=== PATIENT | male | born 1990 | race African-American/Black ===

== ENCOUNTER 2024-11-05 23:17 | Emergency (ER) | payer MEDICAID, SELFPAY ==
[2024-11-05 23:21] VITALS: BP 108/64; PULSE 78; RESP 18; TEMP 36.2; O2SAT 92
--- NOTE | 2024-11-05 23:41 | W.ED.GENAD ---
Discharge Plan Discharge Details Chief Complaint: PsychEval Clinical Impression: Auditory hallucination, History of command hallucinations, Homeless ED Provider: Joe Rivers Home Meds and New Rx's Prescriptions: No Action Unable to Obtain HPI General Date/Time Provider Initiated Documentation: 11/05/24 23:20. HPI Narrative: This is a 34-year-old -[place] male with a past medical history of what sounds to be schizophrenia, diabetes type 2, who presents today via [facility] for evaluation. Patient states that he is currently homeless, he was trespassing in places after being released from half-way. He describes that he has been hearing voices that have been telling him to do things like chop my feet off or other parts of my body. He denies any command hallucinations to hurt others. He denies any visual hallucinations at this time. He denies any homicidal ideations. He states he does not necessarily want to kill himself or end his life. He states that he does use crack cocaine and he most recently used within the last 48 hours. He denies any alcohol use. No other complaints at this time. He does not have any significant records for the [facility] [employer] access portal. Related Data Home Medications ?Medication ?Instructions ?Recorded ?Confirmed Unknown [Unable to Obtain] 11/05/24 11/05/24 Allergies Allergy/AdvReac Type Severity Reaction Status Date / Time No Known Allergies Allergy Unverified 11/05/24 23:37 General Stated Complaint: PsychEval KATHLEEN: 2 Exam Narrative Exam Narrative: 1.Const: Well-nourished, Well-developed, appearing stated age 2.Eyes: PERRL, no conjunctival injection, and symmetrical lids. 3.ENT: Atraumatic external nose and ears. Moist MM. Neck: Symmetric, trachea midline, No thyromegaly. 4.CVS: +S1/S2, Peripheral pulses 2+ and equal in all extremities. Brisk capillary refill in all extremities. 5.RESP: Unlabored respiratory effort. Clear to auscultation bilaterally. No wheezes rales or rhonchi 6.GI: Soft, Nontender/Nondistended, No hepatosplenomegaly. No guarding or rebound. 7.MSK: Normocephalic/Atraumatic, Extremities w/o deformity or ttp No cyanosis or clubbing, Normal movement of all extremities 8.Skin: Warm, Dry. No rashes or lesions. 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 Sensation grossly intact, no focal neurologic deficits. 10.Psych: (AAO) x3. Appropriate mood and affect Course Vital Signs Vital signs: Vital Signs Temperature 36.2 C L 11/05/24 23:21 Pulse 78 11/05/24 23:21 Respiratory Rate 18 11/05/24 23:21 Blood Pressure 108/64 11/05/24 23:21 Pulse Oximetry 92 11/05/24 23:21 Temperature 36.2 C L 11/05/24 23:21 Temperature Source Temporal Artery Scan 11/05/24 23:21 Pulse 78 11/05/24 23:21 Respiratory Rate 18 11/05/24 23:21 Blood Pressure 108/64 11/05/24 23:21 Blood Pressure Position Sitting 11/05/24 23:21 Pulse Oximetry 92 11/05/24 23:21 Oxygen Delivery Method Room Air 11/05/24 23:21 Oxygen Flow Rate 0 11/05/24 23:21 Medical Decision Making This is a 34-year-old -Dutch male with a past medical history of what sounds to be schizophrenia, diabetes type 2, who presents today via [facility] for evaluation. Patient states that he is currently homeless, he was trespassing in places after being released from half-way. He describes that he has been hearing voices that have been telling him to do things like chop my feet off or other parts of my body. He denies any command hallucinations to hurt others. He denies any visual hallucinations at this time. He denies any homicidal ideations. He states he does not necessarily want to kill himself or end his life. He states that he does use crack cocaine and he most recently used within the last 48 hours. He denies any alcohol use. No other complaints at this time. He does not have any significant records for the [facility] [employer] access portal. Exam demonstrates well-appearing male, no acute distress. He does have concerning command hallucinations, and this certainly does pose a risk to himself. He is here voluntarily and is seeking help. We will give Zyprexa to aid in his current auditory hallucinations state. We will contact mental health, we will medically screen, monitor closely and reassess. 1:57 AM Patient has been medically cleared. He remained stable. Mental health is seen and assessed him, they recommend reassessment in the morning. Patient remains agreeable and voluntary. Patient will be transition to zone B. Quality:SDOH Health Related Social Needs: Health related social needs inadequate housing (Z59.1), housing instability, housed, with risk of homelessness (Z59.811), food insecurity (Z59.41) PFSH All Active Problems (Updated 11/06/24 @ 01:58 by Joe Rivers DO) Homeless (Acute) History of command hallucinations (Acute) Auditory hallucination (Acute) Social History Smoking/Tobacco Use Status: Current every day Smoking risk assessment performed?: Yes Alcohol Intake: current Drug use: Daily Details: Pt not willing to answer specifics about drug use, but endorses use Housing: homeless Do you feel safe at home: No Do you feel safe in your relationship?: No
[2024-11-05] MEDS: OLANZapine 10 MG TAB 20 MG PO (23:43)
[2024-11-05 23:56] LABS: *AMPHETAMINES SCREEN URINE Negative (Negative); *BARBITURATES SCREEN URINE Negative (Negative); *BENZODIAZEPINES SCREEN URINE Negative (Negative); Cannabinoids THC Positive (Negative); Cocaine Screen,Urine Positive (Negative); METHADONE URINE SCREEN Negative (Negative); OPIATES URINE SCREEN Negative (Negative)
[2024-11-05 23:58] LABS: Tricyclic Antidepressants Negative (Negative)
[2024-11-06 00:26] LABS: Abs Immature Grans 0.04 10^3/uL (0.0-0.06); Absolute Basophil Count 0.03 10^3/uL (0.0-0.2); Absolute Eosinophil Count 0.01 10^3/uL (0.0-0.7); Absolute Lymphocyte Count 2.79 10^3/uL (1.2-3.4); Absolute Monocyte Count 0.61 10^3/uL (0.1-0.8); Absolute Neutrophil Count 6.73 10^3/uL (1.2-6.7); Basophils % 0.3 %; Eosinophils % 0.1 %; HCT 36.8 % (40.0-50.0); HGB 11.6 g/dL (13.5-17.5); Immature Grans % 0.4 %; Lymphocytes % 27.3 %; MCH 25.6 pg (27.0-33.0); MCHC 31.5 % (32.0-36.0); MCV 81 fL (80-95); MPV 9.9 fL (8.0-11.0); Neutrophils % 65.9 %; Platelet Count 340 10^3/uL (130-400); RBC 4.54 10^6/uL (4.36-5.78); RDW 16.4 % (11.8-14.1); RDW-SD 46.5 fL; WBC 10.21 10^3/uL (4.4-10.8)
[2024-11-06 00:46] LABS: Salicylate 2.9 mg/dL (<2.8)
[2024-11-06 00:47] LABS: Acetaminophen < 2 ug/mL (10-30)
[2024-11-06 00:49] LABS: ALT 24 U/L (16-63); AST 32 U/L (15-37); Alkaline Phosphatase 102 U/L (46-116); Anion Gap 10.2 mmol/L (3-11); BUN 16 mg/dL (7-18); Bilirubin, Total 0.82 mg/dL (0.2-1.0); CO2 27.8 mmol/L (21.0-32.0); CREATININE 1.3 mg/dL (0.70-1.30); Calcium 9.5 mg/dL (8.5-10.1); Chloride 105 mmol/L (98-107); Estimated GFR 74.85 (mL/min/1.73m2); Glucose 91 mg/dL (74-106); Potassium 3.7 mmol/L (3.5-5.1); Sodium 143 mmol/L (136-145); TSH (W/Ref FT4) 2.35 uIU/mL (0.36-3.74); Total Protein 9.1 g/dL (6.4-8.2)
[2024-11-06 01:04] LABS: ETHANOL BLOOD < 3.0 mg/dL (<10)
[2024-11-06 08:34] VITALS: BP 98/56; PULSE 68; RESP 18; TEMP 36.7; O2SAT 97
--- NOTE | 2024-11-06 14:54 | ED.PROG_ITS ---
Date of service: 11/06/24 Time of Service: 14:55 Medical Decision Making Care was signed out by Dr. Rivers please see his documentation regarding prior ED course. Patient was reevaluated by [facility] crisis screener. Patient deemed not at risk of harming himself. A safety plan was established. Patient does need assistance with housing and other social determinants of health. [facility] crisis screener working with care management to provide as many resources as possible here today. Disposition decision was made weighing the risks and benefits of hospitalization versus outpatient treatment, the risk for further decompensation, and the patient's wishes. The patient was stable and requested discharge. Prior to discharge, my usual and customary return precautions were reviewed with the patient - this included follow-up instructions and reason to return to the emergency department if condition worsens, does not improve as expected, or other new concerns arise. Quality:SDOH Health Related Social Needs: Health related social needs inadequate housing (Z59.1) , housing instability, housed, with risk of homelessness (Z59.811), food insecurity (Z59.41) Discharge Plan Disposition Patient Disposition: Home Condition: Stable Discharge Details Clinical Impression: Auditory hallucination, History of command hallucinations, Homeless, Cocaine abuse Primary Care Provider: None,None ED Provider: Jonathan Zepeda [place] Meds and New Rx's Prescriptions: No Action metformin 500 mg tablet 500 mg PO BID pantoprazole 40 mg tablet,delayed release (DR/EC) 40 mg PO DAILY trazodone 50 mg tablet 25 mg PO DAILY fluoxetine 10 mg capsule 10 mg PO DAILY fluoxetine 40 mg capsule 40 mg PO DAILY olanzapine 5 mg tablet 5 mg PO DAILY olanzapine 15 mg tablet 15 mg PO DAILY trazodone 100 mg tablet 100 mg PO DAILY Discharge Instructions Instructions: Cocaine use disorder Additional Instructions: Please follow-up with a primary care physician. Adhere to safety plan established with [facility] crisis screener. Return to the ER immediately for any worsening or new concerning symptoms. [facility] [[facility] Discharge Data Discharge Date/Time-TO BE ENTERED AT DEPARTURE: 11/06/24 15:55
--- NOTE | 2024-11-06 15:44 | PDOC.CMPRO ---
Date of service: 11/06/24 Time of Service: 15:44 Care Management Progress Note Progress Note Text Progress Note Text: CM met with [facility] regarding Liyah's plan of care. Per [facility], he does not meet criteria for inpatient psychiatric admission, and together they will create a safety plan, and he will return to the community. CM contact the learning coach, who met with Liyah and provided support. [facility] met with Liyah at length, and supported him with making a phone call to [facility], and unfortunately, he did not meet criteria for emergency housing/residential. Per report, there is no availability at the [facility] at this time. CM sent a referral to [facility] to help assist with insurance (if he plans to remain in [place]), housing, food support, and other community resources that may be available to him. He does not have a phone or an address currently, which will be a barrier to him obtaining services. His RN walked him over to [facility] after discharge, for him to receive walk in support. Social Determinants of Health Screening Will the Patient Participate in the Screening?: Declined to provide
--- NOTE | 2024-11-06 17:21 | PDOC.MHCN ---
Date of service: 11/06/24 Time of Service: 17:04 Mental Health Emergency Note Release [facility] release signed:: Yes Reason for Visit Liyah is presenting to the ED for inpatient treatment after being seen for a mobile crisis encounter at [facility]. In the last 2 weeks has the pt presented for ES prior to today?: Yes, presented at [facility] ED Client Information Client is: New Well Housed: No,status: Homeless Stable housing Non Suicidal Self Injury Current: No History: No Safety Risk/Harm to Self or Others Current Ideation to Harm Self or Others: Yes to self. (Client is reporting he wants to end his life, but has not disclosed a plan or intent) Intent: no, has no intent. Plan: no.does not have a plan. History of suicide attempt: yes,history of suicide attempt reported. Details of previous suicide attempt: Client has previously tried to overdose in attempt to end his life Risk: Does risk to harm exist?: No Risk: N/A Duty to warn indicated: No Asssessment/Mental Status Appearance: Unremarkable Attitude: Cooperative and Passive Behavior: Gait disturbances Speech: Normal Affect: Cogruent with mood Mood: Stressed and Irritable Thought process: Goal directed Hallucinations: No evidence Delusions: No evidence Attention: Unremarkable Perception: Not impaired Orientation: Fully orientated Memory: Intact Insight: Fair Judgement: Fair Neurovegetative Symptoms Sleep: No change Appetitie: No change Interests: No change Energy: No change Libido: Not applicable Substance Use: Do you use nicotine?: No Have you used substances in the last 7 days?: yes, Client reports history of crack and cocaine use, client did not disclose last use or frequency of use. Additional Issues: Assaultive/Threatening Behavior: No Medical Concerns: No Client engaged in active self harm w/weapon: No Threatening to run away: No Child reported abuse/neglect: No Voluntarily presenting for services: Yes Domestic violence is a concern: No Extreme Psychosis or extreme behavior is present: No Impression Liyah presents to this job specification writer sitting in a room with Rand[facility] staff at [facility] who is completing insurance paperwork with him. Liyah is in street clothes and sits across the table. This job specification writer reminded Liyah she was the clinician who he spoke to on the phone on 11/05, Liyah did not acknowledge this encounter and when this clinician asks how we can help and what is going on Liyah states, Im gonna kill myself Liyah reports he has no home and no hope and that earlier he lied to [facility] so he could leave the ED on a safety plan. Liyah could not disclose why he lied or what his intentions where and appeared frustrated this job specification writer was questioning him in regards to this. Shanon reports he doesn't know, yet how he would end his life but he knows he would. Liyah reports a previous attempt of trying to overdose but a friend stopped him. Liyah also reports previous times of endorsing SI. Liyah denies HI at this time but would not disclose history of HI or violence to this job specification writer. Liyah confirmed he was incarcerated for 2 years in [place], [place] but did not disclose why. Liyah is originally from [place] and when asked [place] he reported it is a long story and he does not want to answer any more questions. When this job specification writer reminded Liyah we are trying to help he was willing to engage again. Liyah reports he wants to seek inpatient treatment for his mental health, Liyah and this job specification writer discussed that means staying in the ED until a bed at inpatient becomes available and he reports he is wiling to do so now. Liyah makes minimal eye contact with this job specification writer, is brief in response, and shows gist disturbance. Liyah could benefit from short term inpatient treatment. Plan/Disposition Recommended Disposition: Hospitalization (Referrals will be sent on 11/06 for Liyah) facilities contacted. Plan: Liyah will go to the ED at [facility] to seek voluntary inpatient treatment and will remain there until treatment can be found. Person reported agreement to plan: Yes Reports/communication Outcome discussed with: ED/Personnel
[2024-11-07 11:23] LABS: Hepatitis A Antibody IgM Negative (Negative); Hepatitis B Core Antibody Negative (Negative); Hepatitis B surface Ag Negative (Negative); Hepatitis C Ab w Rflx HCV PCR Reactive (Negative)
[2024-11-08 11:59] LABS: HCV RNA Qualitative Undetected (Undetected)
== END 2024-11-06 15:55 | disposition home or self-care (01) ==
PROVIDERS: Student in an Organized Health Care Education/Training Program; Emergency Provider Student in an Organized Health Care Education/Training Program
DX: R44.0 Auditory hallucinations (principal); Z59.00 Homelessness unspecified; F14.90 Cocaine use, unspecified, uncomplicated; Z59.811 Housing instability, housed, with risk of homelessness; Z59.41 Food insecurity
CPT/HCPCS: 00123; 36415; 80053; 80307; 86704; 86709; 86803; 87340; 87522; 99283; 80320; 80329; 84443; 85025; 99284

== ENCOUNTER 2024-11-06 17:09 | Emergency (ER) | payer MEDICAID, SELFPAY ==
[2024-11-06 17:28] VITALS: BP 111/72; PULSE 76; RESP 16; TEMP 36.8; O2SAT 96
--- NOTE | 2024-11-06 17:53 | W.ED.GENAD ---
Discharge Plan Discharge Details Chief Complaint: PsychEval Clinical Impression: Depression with suicidal ideation, Homeless, Cocaine abuse Primary Care Provider: None,None ED Provider: Bronwyn Alberts Home Meds and New Rx's Prescriptions: No Action No Known Home Meds HPI General Mode of arrival: ambulatory. Date/Time Provider Initiated Documentation: 11/06/24 17:12. Limitations to Documentation: no limitations. Information obtained by: patient and old records reviewed. HPI Narrative: HPI: This is a 34-year-old male patient with a past medical history significant for cocaine use, history of hallucinations, and homelessness who is presenting for evaluation of suicidal ideation. Of note, the patient was discharged from this facility approximately 1 hour ago, mom states that when he left in the setting of COVID exposure and inability to be placed in a senior care he began to feel worthless and helpless and felt suicidal. No specific plan or intent, states that he did not do anything to harm himself this evening. He reports that he has not used cocaine since yesterday, did not use prior to returning to care. States that he has otherwise been without change in his health. Exam: Gen: Awake and alert, in no apparent distress HEENT: Non-icteric sclera Neck: Supple Lungs: No apparent respiratory distress, normal respiratory effort. CV: Appears well perfused, strong distal pulses Abdomen: Non-distended MSK: Moves 4 extremities without apparent limitation in ROM Skin: Visualized skin without rashes, cyanosis. Neuro: Normal Gait, no obvious focal deficits or facial asymmetry. Speaks in full, clear sentences. Psych: Endorsing suicidal ideation MDM: This is a 34-year-old male patient presenting for evaluation of suicidal ideation. Differential includes but is not limited to primary psychiatric disturbance, certainly considered intoxication and withdrawal syndrome. The patient is tolerating p.o., has not had any recent illnesses, injuries, and meets [facility] medical criteria for medical clearance without advanced imaging or laboratory studies. We will reach out to [facility] for the patient to be reevaluated. I did provide the patient with a nicotine patch given his history of tobacco use ED Course: I signed out care of this patient to the oncoming team prior to final disposition. I was awaiting an EKG chest evaluation, patient remains voluntary, I anticipate that he will be able to be safety plan, as senior care is a leading component of his suicidality. He remained hemodynamically appropriate, comfortable, and cooperative. Bronwyn Alberts MD Related Data Home Medications ?Medication ?Instructions ?Recorded ?Confirmed Unknown [No Known Home Meds] 11/06/24 11/06/24 Allergies Allergy/AdvReac Type Severity Reaction Status Date / Time No Known Allergies Allergy Unverified 11/05/24 23:37 General KATHLEEN: 2 Medical Decision Making Quality:SDOH Health Related Social Needs: Health related social needs inadequate housing (Z59.1), housing instability, housed, with risk of homelessness (Z59.811), food insecurity (Z59.41) PFSH All Active Problems (Updated 11/06/24 @ 22:23 by Bronwyn Alberts MD) Depression with suicidal ideation (Acute) Cocaine abuse (Acute) Homeless (Acute) History of command hallucinations (Acute) Auditory hallucination (Acute) Social History Smoking/Tobacco Use Status: Current every day Smoking risk assessment performed?: Yes Alcohol Intake: current Drug use: Daily Details: Pt not willing to answer specifics about drug use, but endorses use Housing: homeless Do you feel safe at home: No Do you feel safe in your relationship?: No
[2024-11-06] MEDS: Nicotine 14 MG/24 HR PATCH TD (18:05)
--- NOTE | 2024-11-06 18:51 | W.PC.ACHO1 ---
Registration Status: Primary Language: Preferred Language: ED Information & Data Chief Complaint PsychEval 11/06/24 17:59 Chief Complaint PsychEval 11/06/24 17:28 Triage Note Discharged earlier today 11/06/24 17:28 with a safety plan. Returned to the hospital, endorsing auditory and visual hallucinations of unclear nature. Also endorses SI. Most Recent Vital Signs Temperature 36.8 C 11/06/24 17:28 Temperature Source Tympanic 11/06/24 17:28 Pulse 76 11/06/24 17:28 Respiratory Rate 16 11/06/24 17:28 Blood Pressure 111/72 11/06/24 17:28 Blood Pressure Position Sitting 11/06/24 17:28 Pulse Oximetry 96 11/06/24 17:28 Oxygen Delivery Method Room Air 11/06/24 17:28 Oxygen Flow Rate 0 11/06/24 17:28 Allergies No Known Allergies Allergy (Unverified 11/05/24 23:37) Active Medications Generic Name Dose Route Start Last Admin Trade Name Freq PRN Reason Stop Dose Admin Nicotine 14 mg 11/07/24 08:30 11/06/24 18:05 Nicotine 14 Mg/24 Hr Patch TD 14 mg DAILY KRISTEN Administration Intake and Output - 24 Hour Total 11/06/24 17:09 thru 11/06/24 17:28 Weight 102.058 kg Falls Risk Assessment History of Falls No History 11/06/24 18:03 Contributing Factors No Factors 11/06/24 18:03 Ambulatory Aids Independent 11/06/24 18:03 Tubes/Lines None 11/06/24 18:03 Gait Evaluation No gait disturbance 11/06/24 18:03 Cognition No cognitive impairment 11/06/24 18:03 Fall Total Score 0 11/06/24 18:03 Level of Risk Standard/Low Risk 11/06/24 18:03 v v v v v v v v v Sending and/or Receiving Nurses: Please use comment section below to note any information pertinent to the patient hand-off not included above. Information / Comments: Report received from: Jean Dao RN
--- NOTE | 2024-11-07 01:41 | ED.PROG_ITS ---
Date of service: 11/07/24 Time of Service: 01:41 Medical Decision Making Patient stable throughout the night, no interventions needed. Pending reassessment by mental health advocates in the morning. Quality:SDOH Health Related Social Needs: Health related social needs inadequate housing (Z59.1) , housing instability, housed, with risk of homelessness (Z59.811), food insecurity (Z59.41) Discharge Plan Discharge Details Chief Complaint: PsychEval Clinical Impression: Depression with suicidal ideation, Homeless, Cocaine abuse Primary Care Provider: None,None ED Provider: Joe Rivers Home Meds and New Rx's Prescriptions: No Action No Known Home Meds
--- NOTE | 2024-11-07 14:45 | ED.PROG_ITS ---
Date of service: 11/07/24 Time of Service: 07:00 Medical Decision Making Quality:SDOH Health Related Social Needs: Health related social needs inadequate housing (Z59.1) , housing instability, housed, with risk of homelessness (Z59.811), food insecurity (Z59.41) Discharge Plan Discharge Details Chief Complaint: PsychEval Clinical Impression: Depression with suicidal ideation, Homeless, Cocaine abuse Primary Care Provider: None,None ED Provider: Myron Vincent Home Meds and New Rx's Prescriptions: No Action No Known Home Meds
--- NOTE | 2024-11-07 16:27 | ED.PROG_ITS ---
Date of service: 11/07/24 Time of Service: 16:31 Medical Decision Making Care assumed from off going provider. Patient is a 34-year-old gentleman with suicidal ideation currently pending voluntary inpatient psychiatric placement. Quality:[facility] Health Related Social Needs: Health related social needs inadequate housing (Z59.1) , housing instability, housed, with risk of homelessness (Z59.811), food insecurity (Z59.41) Discharge Plan Discharge Details Chief Complaint: PsychEval Clinical Impression: Depression with suicidal ideation, Homeless, Cocaine abuse Primary Care Provider: None,None ED Provider: Haylie Armijo Home Meds and New Rx's Prescriptions: No Action No Known Home Meds
--- NOTE | 2024-11-07 19:20 | PDOC.CMSAFE ---
Date of service: 11/07/24 Time of Service: 19:20 Care Management Safety Plan Status Status: Voluntary Reason for Wait Reason for Wait: Inpatient Admission Safety Plan Safety Plan: VOLUNTARY FOR INPATIENT PSYCHIATRIC STABILIZATION.? Patient is appropriate in all interactions since arriving at [facility]; Pt has demonstrated appropriate coping and communication skills, has articulated his needs and concerns and is fully engaged during staff interaction Safety plan has been established with patient and care team to adhere to patient goals, identify restrictions based on behavioral status, address nutrition, and determine allowed personal belongings, tools for hygiene and personal care. Determine level of activity including ambulation, level of supervision, visitors, and determine privileges based on behaviors and level of engagement by pt. SAFETY PLAN: 1. Will remain on suicide precautions, in paper clothes 2. Will remain in room under direct supervision of one-on-one staff at all times provided by [employer]; SHREE, FLOOR LAYER TILE glass ribbon machine operator assistant. 3. May have paper cups, plates, finger foods as well as a cardboard spoon with which to eat meals. 4. Follow [facility] Management of the Admitted Behavioral Health Patient policy. 5. Comfort bath system, shower permitted with escort at RN discretion. 6. Personal belongings-soft items permitted at RN discretion. 7. Visitors- supportive guests, at RN discretion. 8. Activities: soft cart items, and netflix/hoda tablet approved per RN discretion. 9.? Bathroom privileges without limitations on med/surge. 10. Phone: limited to cordless phone at RN discretion. Due to VOLUNTARY status, if patient wishes to leave [facility], staff will contact [facility] Crisis Screener ([phone]) and the Access Clerk assigned, as soon as possible.
[2024-11-08] MEDS: Nicotine 14 MG/24 HR PATCH TD (10:04)
--- NOTE | 2024-11-08 11:51 | PDOC.MHPN2 ---
Date of service: 11/07/24 Time of Service: 10:20 Mental Health Emergency Note Release [facility] release signed:: Yes Reason for Visit The client presented to this clinican with a flat affect. The client appeared fatigued to this clinician. The client did not sit up and would close his eyes during the reassessment. The client did not lift his head off of the pillow. The client was cooperative in working with this clinician. This poem writer is importing note for ES clinician Per Tanner In the last 2 weeks has the pt presented for ES prior to today?: Yes, presented at [facility] ED Client Information Client is: Adult Outpatient Impression The client engaged with clinician on reassessment. The client states having visual and auditory hallucinations. The client reported SI with a plan but did not share the plan. The client denies HI. The client appeared fatigued and did notice his head up off his pillow. Plan/Disposition Recommended Disposition: Hospitalization facilities contacted. Plan: The client will remain at [facility] ED pending placement in an inpatient facility. Person reported agreement to plan: Yes Reports/communication Outcome discussed with: ED/Personnel (Verbal report given to zone b nurse Pena and ED provider)
--- NOTE | 2024-11-08 15:07 | PDOC.MHPN2 ---
Date of service: 11/08/24 Time of Service: 15:10 Mental Health Emergency Note Release [facility] release signed:: Yes Reason for Visit The client is not known to [facility] prior to the the crisis assessment done November 05. The client's chief complaint was visual and auditory hallucinations along with suicidal ideation. The client reports having been released from the [facility] usp for two years. This assessment is completed face to face at bedside. In the last 2 weeks has the pt presented for ES prior to today?: Yes, presented at [facility] ED Impression The client is a 34-year-old, , single male who is unhoused and was released from usp in [facility] about two weeks ago where he served a sentence of two years. He presents lying in bed with his head covered and his lunch tray on his desk. He only wakes when this clinician gently shook his leg. He does not sit up but does answer questions. He is soft spoken and has some delayed responses to questions. He did not endorse any visual or auditory hallucinations. It appeared there may be some sort of cognitive delay. The client has a blank stare during the assessment and a flat affect with the occassinal limited smile. Although it was reported he did take a shower he still has a strong body odor however, it cannot be confirmed if this is him of maybe his linen. He reported he was at [facility] for SI which he has struggled with for the last few days. He reported that he became hopeless a few days ago which was the orientation & mobility specialist for him. He reported having no natural supports in this area as he is from [facility]. He would like to go back to [place] as his 10-year-old daughter lives there with her grandmother. The client denied any current plans but does have a history of plans to overdose. HE is currently prescribed Trazadone, and Clonidine for reported diagnosis of anxiety and depression. He reported his prescriber is WILSON however, this is not verified with [facility] tracker and therefore this clinician wonders if he was previously on these meds instead of currently due to how recently he was discharged from care home. He did report that these meds worked for him when he was taking them. He is denying any HI. He reported he is sleeping and eating okay. Plan/Disposition Recommended Disposition: Crisis bed, (Declined due to hx of cocaine use and being discharged from care home. ) No and Hospitalization facilities contacted. Plan: Due to being declined from the [facility] Bed inpatient treatment will be continued. He will remain at [facility] pending acceptance to a hospital level of care and assessed daily. Person reported agreement to plan: Yes Facilities contacted if Applicable [facility] Not accepted, No bed available [facility] Not accepted, Other (CLOSED) [facility] Not accepted, Other (Left a voicemail.), [facility] Not accepted, Acuity Reports/communication Outcome discussed with: ED/Personnel
--- NOTE | 2024-11-08 15:41 | ED.PROG_ITS ---
Date of service: 11/08/24 Time of Service: 07:00 Medical Decision Making Patient was suicidal and homicidal ideation who was signed out to me he was evaluated by crisis workers who feel that he might be able to discharge with safe plan but they are to come back to reevaluate him Medical Records Medical records reviewed: Yes I reviewed the patient's medical records. Lab Data Lab results reviewed: Yes I reviewed the patient's lab results. Quality:SDOH Health Related Social Needs: Health related social needs inadequate housing (Z59.1) , housing instability, housed, with risk of homelessness (Z59.811), food insecurity (Z59.41) Exam Narrative Exam Narrative: Unchanged from previous provider Discharge Plan Discharge Details Chief Complaint: PsychEval Clinical Impression: Depression with suicidal ideation, Homeless, Cocaine abuse Primary Care Provider: None,None ED Provider: Myron Vincent Home Meds and New Rx's Prescriptions: No Action No Known Home Meds
--- NOTE | 2024-11-08 16:59 | CMSP_ITS ---
Date of service: 11/08/24 Time of Service: 16:59 Care Management Safety Plan Status Status: Voluntary Reason for Wait Reason for Wait: Inpatient Admission Safety Plan Safety Plan: VOLUNTARY FOR INPATIENT PSYCHIATRIC STABILIZATION.? Patient is appropriate in all interactions since arriving at [facility]; Pt has demonstrated appropriate coping and communication skills, has articulated his needs and concerns and is fully engaged during staff interaction Safety plan has been established with patient and care team to adhere to patient goals, identify restrictions based on behavioral status, address nutrition, and determine allowed personal belongings, tools for hygiene and personal care. Determine level of activity including ambulation, level of supervision, visit ors, and determine privileges based on behaviors and level of engagement by pt. SAFETY PLAN: 1. Will remain on suicide precautions, in paper clothes 2. Will remain in room under direct supervision of one-on-one staff at all times provided by [employer]; SHREE, INFRASTRUCTURE PROJECT MANAGER computer support specialist. 3. May have paper cups, plates, finger foods as well as a cardboard spoon with which to eat meals. 4. Follow [facility] Management of the Admitted Behavioral Health Patient policy. 5. Comfort bath system, shower permitted with escort at RN discretion. 6. Personal belongings-soft items permitted at RN discretion. 7. Visitors- supportive guests, at RN discretion. 8. Activities: soft cart items, and netflix/hoda tablet approved per RN discretion. 9.? Bathroom privileges without limitations on med/surge. 10. Phone: limited to cordless phone at RN discretion. Due to VOLUNTARY status, if patient wishes to leave [facility], staff will contact [facility] Crisis Screener ([phone]) and the Floor Space Allocator assigned, as soon as po ssible.
--- NOTE | 2024-11-08 16:59 | PDOC.CMPRO ---
Date of service: 11/08/24 Time of Service: 16:59 Care Management Progress Note Progress Note Text Progress Note Text: CM met with staff regarding Liyah's plan of care. Per RN, he has been appropriate in interactions, and appears to be opening up more to staff as he feels more comfortable. He expressed a wish to return to [place] after treatment to be closer to his 10 year old daughter. [facility] reported they are considering him for admission at the care bed, but he was declined due to concerns for acuity; he may be appropriate for a step down to the care bed, if needed. Liyah is voluntary, seeking inpatient psychiatric treatment. Referrals were sent; [facility] declined, [facility] is currently full, and [facility] is reviewing. Safety plan in place. CM will continue to follow. Social Determinants of Health Screening Will the Patient Participate in the Screening?: Declined to provide
--- NOTE | 2024-11-08 17:18 | ED.PROG_ITS ---
Date of service: 11/08/24 Time of Service: 17:00 Medical Decision Making In brief, this is a 34-year-old male patient boarding in our emergency department for suicidal ideations and command hallucinations. Prior to my taking over care he was medically cleared, states that his hallucinations have been improving. I did provide him with an order for as needed Zyprexa to be used as needed for if his hallucinations or any agitation occur. He is awaiting placement and was signed out to the oncoming provider prior to final disposition. He did not require any interventions for sedation or restraint and remained calm, cooperative, and comfortable throughout my care. Bronwyn Alberts MD Medical Records Medical records reviewed: Yes I reviewed the patient's medical records. Lab Data Lab results reviewed: Yes I reviewed the patient's lab results. Quality:SDOH Health Related Social Needs: Health related social needs inadequate housing (Z59.1) , housing instability, housed, with risk of homelessness (Z59.811), food insecurity (Z59.41) Discharge Plan Discharge Details Chief Complaint: PsychEval Clinical Impression: Depression with suicidal ideation, Homeless, Cocaine abuse Primary Care Provider: None,None ED Provider: Bronwyn Alberts Home Meds and New Rx's Prescriptions: No Action No Known Home Meds
--- NOTE | 2024-11-09 07:22 | ED.PROG_ITS ---
Date of service: 11/09/24 Time of Service: 07:22 Medical Decision Making Patient seeking voluntary placement. Hallucinations and also thoughts of self- harm. No reported issues on prior shift and no new acute complaints. Will continue to monitor until safe disposition found Quality:SDOH Health Related Social Needs: Health related social needs inadequate housing (Z59.1) , housing instability, housed, with risk of homelessness (Z59.811), food insecurity (Z59.41) Discharge Plan Discharge Details Chief Complaint: PsychEval Clinical Impression: Depression with suicidal ideation, Homeless, Cocaine abuse Primary Care Provider: None,None ED Provider: Jean Gutierres Home Meds and New Rx's Prescriptions: No Action No Known Home Meds
--- NOTE | 2024-11-09 09:10 | PDOC.CMSAFE ---
Date of service: 11/09/24 Time of Service: 09:10 Care Management Safety Plan Status Status: Voluntary Reason for Wait Reason for Wait: Inpatient Admission and Other ([facility] care bed) Safety Plan Safety Plan: VOLUNTARY FOR INPATIENT PSYCHIATRIC STABILIZATION.? Patient is appropriate in all interactions since arriving at [facility]; Pt has demonstrated appropriate coping and communication skills, has articulated his needs and concerns and is fully engaged during staff interaction Safety plan has been established with patient and care team to adhere to patient goals, identify restrictions based on behavioral status, address nutrition, and determine allowed personal belongings, tools for hygiene and personal care. Determine level of activity including ambulation, level of supervision, visitors, and determine privileges based on behaviors and level of engagement by pt. SAFETY PLAN: 1. Will remain on suicide precautions, in paper clothes 2. Will remain in room under direct supervision of one-on-one staff at all times provided by [employer]; SHREE, ZOO DIRECTOR agricultural services director. 3. May have paper cups, plates, finger foods as well as a cardboard spoon with which to eat meals. 4. Follow [facility] Management of the Admitted Behavioral Health Patient policy. 5. Comfort bath system, shower permitted with escort at RN discretion. 6. Personal belongings-soft items permitted at RN discretion. 7. Visitors- supportive guests, at RN discretion. 8. Activities: soft cart items, and netflix/hoda tablet approved per RN discretion. 9.? Bathroom privileges without limitations on med/surge. 10. Phone: limited to cordless phone at RN discretion. Due to VOLUNTARY status, if patient wishes to leave [facility], staff will contact [facility] Crisis Screener ([phone]) and the Manufacturing Business Analyst assigned, as soon as possible.
[2024-11-09] MEDS: Nicotine 14 MG/24 HR PATCH TD (09:48)
[2024-11-09 09:54] VITALS: BP 92/56; PULSE 60; TEMP 36.7; O2SAT 98
--- NOTE | 2024-11-09 12:40 | NUR.NOTE ---
Nursing Note: Contacted [facility] and received pt's MAR. Medical Reconciliation finished and physician ordered pt's daily medications. Also attempted to contact pt's booking officer, Milton Sanchez ([phone]) to determine what needs to be done to assist patient in being compliant with requirements of release from incarceration. PO unavailable. Left message with call-back number.
--- NOTE | 2024-11-09 14:55 | CMPROGNOTE_ITS ---
Date of service: 11/09/24 Time of Service: 14:56 Care Management Progress Note Progress Note Text Progress Note Text: CM met with the [facility] worker today. Maynor stated that Liyah is supposed to meet with his zoology technical officer on Monday, but that will not be happening. CM called Javad Sanchez, his VM clearly stated his name and role with corrections, and left a very generic VM that Liyah is at [facility] and will not be able to attend Monday's meeting. CM # left with Javad. [facility] Care Bed met with Liyah today, and deemed that he would do better at an inpatient setting. Referrals have already been sent. He was declined from [place]. Liyah's main goal is to get to [place], [place] so he can reconnect with his 10yo daughter. Safety Plan is in place. CM will continue to follow. Social Determinants of Health Screening Will the Patient Participate in the Screening?: Declined to provide
--- NOTE | 2024-11-09 16:13 | MHPN_ITS ---
Date of service: 11/09/24 Time of Service: 11:15 PHQ-9 Over the last 2 weeks, how often have you been bothered by any of the following problems? 1. Little interest or pleasure in doing things: several days 2. Feeling down, depressed, or hopeless: several days 3. Trouble falling or staying asleep, or sleeping too much: several days 4. Feeling tired or having little energy: several days 5. Poor appetite or overeating: nearly every day 6. Feeling bad about yourself - or that you are a failure or have let yourself and your family down: several days 7. Trouble concentrating on things, such as reading the newspaper or watching television: more than half the days 8. Moving or speaking so slowly that other people could have noticed? - Or the opposite - being so fidgety or restless that you have been moving around a lot more than usual: not at all 9. Thoughts that you would be better off or of hurting yourself in some way: several days Total score: 11 Source: Developed by Drs. Mike Ulrich, Nanci Navarrete, Jacob Don and colleagues, with an educational ab from [employer]. Suicide Severity Rate CSSRS Have you wished you were or wished you could go to sleep and not wake up?: No Have you actually had any thoughts of killing yourself?: Yes CSSRS2 Have you been thinking about how you might do this?: No Have you had these thoughts and had some intention of acting on them?: Yes Have you started to work out or worked out the details of how to kill yourself? Do you intend to carry out this plan?: No CSSRS3 Have you ever done anything, started to do anything or prepared to do anything to end your life?: Yes CSSRS4 Was this within the past three months?: No Screening Score Total Score: 4 Screening: Positive Mental Health Emergency Note Release [facility] release signed:: Yes Reason for Visit Suicidal ideation, possible cognitive delays In the last 2 weeks has the pt presented for ES prior to today?: Yes, presented at Client Information Client is: New Well Housed: No,status: Homeless Unstable housing Non Suicidal Self Injury Current: No History: No Safety Risk/Harm to Self or Others Current Ideation to Harm Self or Others: Yes to self. Intent: yes, has intent. Plan: no.does not have a plan. History of suicide attempt: No history of suicide attempt reported Risk: Does risk to harm exist?: yes. Risk: Moderate Risk Duty to warn indicated: No Asssessment/Mental Status Appearance: Other (hospital clothing) Attitude: Cooperative and Other (cogniton deficits) Behavior: Unremarkable Speech: Normal Affect: Constricted Mood: Depressed and Anxious Thought process: Poverty of content Hallucinations: No Delusions: No Attention: Poor concentration Perception: Not impaired Orientation: Fully orientated Memory: Intact Insight: Poor Judgement: Poor Neurovegetative Symptoms Sleep: Decrease Appetitie: Decrease Interests: Decrease Energy: Decrease Libido: Not applicable Substance Use: Other (no) Drug Issues: Other (has been using crack cocaine for the last 2 weeks but was incarcerated for 2 years prior) Do you use nicotine?: No Have you used substances in the last 7 days?: yes, unknown Additional Issues: Assaultive/Threatening Behavior: No Medical Concerns: No Client engaged in active self harm w/weapon: No Threatening to run away: No Child reported abuse/neglect: No Voluntarily presenting for services: Yes Domestic violence is a concern: No Extreme Psychosis or extreme behavior is present: No Impression This client has recently come off a drug bendor using crack after being in long term for the last 2 years,appears to have some cognitive deficits [facility] and given:: 988 Plan/Disposition Recommended Disposition: Hospitalization facilities contacted. Plan: Awaitng to go inpatient for mental health regularity Facilities contacted if Applicable [facility] Not accepted, No bed available [facility] Not accepted, No bed available, [facility] Not accepted, No bed available [facility] Not [facility], Other Reports/communication Outcome discussed with: ED/Personnel
--- NOTE | 2024-11-09 20:04 | W.EDPROG ---
Date of service: 11/09/24 Time of Service: 15:00 Medical Decision Making This is a 34-year-old male patient boarding in our emergency department for command hallucinations and suicidal. Prior to my taking over their care, the patient was medically cleared, and has been resting comfortably. They have met with the social studies teacher and we are awaiting final dispo. They have not required any additional medications for restraint or sedation. The patient was signed out to the oncoming provider prior to final disposition. Remained hemodynamically appropriate, calm, cooperative, and comfortable while under my care. Bronwyn Alberts MD Medical Records Medical records reviewed: Yes I reviewed the patient's medical records. Lab Data Lab results reviewed: Yes I reviewed the patient's lab results. Quality:SDOH Health Related Social Needs: Health related social needs inadequate housing (Z59.1), housing instability, housed, with risk of homelessness (Z59.811), food insecurity (Z59.41) Discharge Plan Discharge Details Chief Complaint: PsychEval Clinical Impression: Depression with suicidal ideation, Homeless, Cocaine abuse Primary Care Provider: None,None ED Provider: Bronwyn Alberts Home Meds and New Rx's Prescriptions: No Action metformin 500 mg tablet 500 mg PO BID pantoprazole 40 mg tablet,delayed release (DR/EC) 40 mg PO DAILY trazodone 50 mg tablet 25 mg PO DAILY fluoxetine 10 mg capsule 10 mg PO DAILY fluoxetine 40 mg capsule 40 mg PO DAILY olanzapine 5 mg tablet 5 mg PO DAILY olanzapine 15 mg tablet 15 mg PO DAILY trazodone 100 mg tablet 100 mg PO DAILY
[2024-11-09] MEDS: traZODone 100 MG TAB PO (20:20)
[2024-11-09] MEDS: traZODone 50 MG TAB 25 MG PO (20:20)
[2024-11-09] MEDS: metFORMIN 500 MG TAB PO (20:21)
--- NOTE | 2024-11-10 07:35 | ED.PROG_ITS ---
Date of service: 11/10/24 Time of Service: 07:35 Medical Decision Making Patient seeking voluntary placement for hallucinations and thoughts of self- harm, no reported changes on prior shift and no new acute complaints. Will continue to monitor until safe disposition found Quality:SDOH Health Related Social Needs: Health related social needs inadequate housing (Z59.1) , housing instability, housed, with risk of homelessness (Z59.811), food insecurity (Z59.41) Discharge Plan Discharge Details Chief Complaint: PsychEval Clinical Impression: Depression with suicidal ideation, Homeless, Cocaine abuse Primary Care Provider: None,None ED Provider: Jean Gutierres [facility] Meds and New Rx's Prescriptions: No Action metformin 500 mg tablet 500 mg PO BID pantoprazole 40 mg tablet,delayed release (DR/EC) 40 mg PO DAILY trazodone 50 mg tablet 25 mg PO DAILY fluoxetine 10 mg capsule 10 mg PO DAILY fluoxetine 40 mg capsule 40 mg PO DAILY olanzapine 5 mg tablet 5 mg PO DAILY olanzapine 15 mg tablet 15 mg PO DAILY trazodone 100 mg tablet 100 mg PO DAILY
[2024-11-10 08:04] VITALS: BP 100/57; PULSE 80; RESP 19; TEMP 37.4; O2SAT 98
[2024-11-10] MEDS: FLUoxetine 20 MG CAP 40 MG PO (10:25)
[2024-11-10] MEDS: Nicotine 14 MG/24 HR PATCH TD (10:25)
[2024-11-10] MEDS: metFORMIN 500 MG TAB PO ×2 (10:25→19:49)
[2024-11-10] MEDS: Pantoprazole 40 MG TABCR PO (10:26)
[2024-11-10] MEDS: OLANZapine 10 MG TAB 20 MG PO (10:26)
--- NOTE | 2024-11-10 12:05 | PDOC.CMSAFE ---
Date of service: 11/10/24 Time of Service: 12:05 Care Management Safety Plan Status Status: Voluntary Reason for Wait Reason for Wait: Inpatient Admission Safety Plan Safety Plan: VOLUNTARY FOR INPATIENT PSYCHIATRIC STABILIZATION.? Patient is appropriate in all interactions since arriving at [facility]; Pt has demonstrated appropriate coping and communication skills, has articulated his needs and concerns and is fully engaged during staff interaction Safety plan has been established with patient and care team to adhere to patient goals, identify restrictions based on behavioral status, address nutrition, and determine allowed personal belongings, tools for hygiene and personal care. Determine level of activity including ambulation, level of supervision, visitors, and determine privileges based on behaviors and level of engagement by pt. SAFETY PLAN: 1. Will remain on suicide precautions, in paper clothes 2. Will remain in room under direct supervision of one-on-one staff at all times provided by [employer]; SHREE, RUBBLE PLACER library technology instructor. 3. May have paper cups, plates, finger foods as well as a cardboard spoon with which to eat meals. 4. Follow [facility] Management of the Admitted Behavioral Health Patient policy. 5. Comfort bath system, shower permitted with escort at RN discretion. 6. Personal belongings-soft items permitted at RN discretion. 7. Visitors- supportive guests, at RN discretion. 8. Activities: soft cart items, and netflix/hoda tablet approved per RN discretion. 9.? Bathroom privileges without limitations on med/surge. 10. Phone: limited to cordless phone at RN discretion. Due to VOLUNTARY status, if patient wishes to leave [facility], staff will contact [facility] Crisis Screener ([phone]) and the Window Shade Installer assigned, as soon as possible.
--- NOTE | 2024-11-10 12:48 | PDOC.MHPN2 ---
Date of service: 11/10/24 Time of Service: 11:11 Mental Health Emergency Note Release [facility] release signed:: Yes Reason for Visit The client is not known to [facility] prior to the the crisis assessment done November 05. The client's chief complaint was visual and auditory hallucinations along with suicidal ideation. The client reports having been released from the [facility] senior living after two years. This re- assessment is completed face to face at bedside. In the last 2 weeks has the pt presented for ES prior to today?: Yes, presented at Impression The client is a 34-year-old, , single male who is unhoused and was released from senior living in [facility] less than a week ago to two weeks ago per review of chart, where he served a sentence of two years. His responses to all answers vary assessment to assessment. He presents lying in bed with his head covered and appears to be sleeping when this sba underwriter arrives in his room. He does not sit up but does answer questions. He is soft spoken and has some delayed responses to questions. He did not endorse any visual or auditory hallucinations currently, but reports to this sba underwriter that he did last week. The client reports that he was hearing voices that were telling him to hurt himself. It appeared there may be some sort of cognitive delay. The client has a blank stare during the assessment and a flat affect with the occasional limited smile. Although it was reported he did take a shower he still has a strong body odor. He reported he was at [facility] for SI which he has struggled with for the last few days, although denies current SI today. He reported that he became hopeless a few days ago which was the trigger for him. He reported having no natural supports in this area as he is from [facility] but in another assessment, he reported he was from [place]. 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 The client denied any current suicide plans but does have a history of plans to overdose. Per [facility] staff they were able to get a medication list from [facility] yesterday and ED provider started him on his previously prescribed medications for diagnosed anxiety and depression. Per this writers conversation with ED staff he took his medications this morning, however wanted to know what each medication was. This sba underwriter had conversation with the client regarding his substance abuse and he is open to [facility] coming in to talk to him. Donna is going to page [facility]. Plan/Disposition Recommended Disposition: Hospitalization (No beds available today) facilities contacted. Plan: Due to being declined from the [facility] Bed inpatient treatment will be continued. He will remain at [facility] pending acceptance to a hospital level of care and assessed daily. Reports/communication Outcome discussed with: ED/Personnel (Verbal report given to [facility] zone b )
--- NOTE | 2024-11-10 17:12 | ED.PROG_ITS ---
Date of service: 11/10/24 Time of Service: 16:00 Medical Decision Making In brief, this is a 34-year-old male patient boarding voluntarily in the emergency department awaiting placement for suicidal ideation and command hallucinations. Prior to my taking over their care, the patient was medically cleared, and has been resting comfortably. They have met with the professor of social work and we are awaiting final dispo. They have not required any additional medications for restraint or sedation. He has had minimal p.o. intake today, but denies nausea, abdominal pain, and has not required any acute interventions. The patient was signed out to the oncoming provider prior to final disposition. Remained hemodynamically appropriate, calm, cooperative, and comfortable while under my care. Bronwyn Alberts MD Medical Records Medical records reviewed: Yes I reviewed the patient's medical records. Lab Data Lab results reviewed: Yes I reviewed the patient's lab results. Quality:[facility] Health Related Social Needs: Health related social needs inadequate housing (Z59.1) , housing instability, housed, with risk of homelessness (Z59.811), food insecurity (Z59.41) Discharge Plan Discharge Details Chief Complaint: PsychEval Clinical Impression: Depression with suicidal ideation, Homeless, Cocaine abuse Primary Care Provider: None,None ED Provider: Bronwyn Alberts Home Meds and New Rx's Prescriptions: No Action metformin 500 mg tablet 500 mg PO BID pantoprazole 40 mg tablet,delayed release (DR/EC) 40 mg PO DAILY trazodone 50 mg tablet 25 mg PO DAILY fluoxetine 10 mg capsule 10 mg PO DAILY fluoxetine 40 mg capsule 40 mg PO DAILY olanzapine 5 mg tablet 5 mg PO DAILY olanzapine 15 mg tablet 15 mg PO DAILY trazodone 100 mg tablet 100 mg PO DAILY
[2024-11-10] MEDS: traZODone 50 MG TAB 25 MG PO (19:50)
[2024-11-10] MEDS: traZODone 100 MG TAB PO (19:50)
--- NOTE | 2024-11-11 08:28 | ED.PROG_ITS ---
Date of service: 11/11/24 Time of Service: 08:29 Medical Decision Making Patient seeking voluntary placement for hallucinations and thoughts of self- harm, no reported issues on prior shift and currently no new acute complaints. Will continue to monitor until safe disposition found Quality:[facility] Health Related Social Needs: Health related social needs inadequate housing (Z59.1) , housing instability, housed, with risk of homelessness (Z59.811), food insecurity (Z59.41) Discharge Plan Discharge Details Chief Complaint: PsychEval Clinical Impression: Depression with suicidal ideation, Homeless, Cocaine abuse Primary Care Provider: None,None ED Provider: Jean Gutierres [place] Meds and New Rx's Prescriptions: No Action metformin 500 mg tablet 500 mg PO BID pantoprazole 40 mg tablet,delayed release (DR/EC) 40 mg PO DAILY trazodone 50 mg tablet 25 mg PO DAILY fluoxetine 10 mg capsule 10 mg PO DAILY fluoxetine 40 mg capsule 40 mg PO DAILY olanzapine 5 mg tablet 5 mg PO DAILY olanzapine 15 mg tablet 15 mg PO DAILY trazodone 100 mg tablet 100 mg PO DAILY
[2024-11-11] MEDS: Pantoprazole 40 MG TABCR PO (09:09)
[2024-11-11] MEDS: OLANZapine 10 MG TAB 20 MG PO (09:09)
[2024-11-11] MEDS: Nicotine 14 MG/24 HR PATCH TD (09:09)
[2024-11-11] MEDS: metFORMIN 500 MG TAB PO (09:09)
[2024-11-11] MEDS: FLUoxetine 20 MG CAP 40 MG PO (09:09)
[2024-11-11 09:10] VITALS: BP 91/62; PULSE 70; TEMP 37.2; O2SAT 99
--- NOTE | 2024-11-11 16:57 | CMSP_ITS ---
Date of service: 11/11/24 Time of Service: 16:57 Care Management Safety Plan Status Status: Voluntary Reason for Wait Reason for Wait: Inpatient Admission Safety Plan Safety Plan: VOLUNTARY FOR INPATIENT PSYCHIATRIC STABILIZATION.? Patient is appropriate in all interactions since arriving at [facility]; Pt has demonstrated appropriate coping and communication skills, has articulated his needs and concerns and is fully engaged during staff interaction Safety plan has been established with patient and care team to adhere to patient goals, identify restrictions based on behavioral status, address nutrition, and determine allowed personal belongings, tools for hygiene and personal care. Determine level of activity including ambulation, level of supervision, visit ors, and determine privileges based on behaviors and level of engagement by pt. SAFETY PLAN: 1. Will remain on suicide precautions, in paper clothes 2. Will remain in room under direct supervision of one-on-one staff at all times provided by [employer]; SHREE, FEEDER SWITCHBOARD OPERATOR monitor and storage bin tender. 3. May have paper cups, plates, finger foods as well as a cardboard spoon with which to eat meals. 4. Follow [facility] Management of the Admitted Behavioral Health Patient policy. 5. Comfort bath system, shower permitted with escort at RN discretion. 6. Personal belongings-soft items permitted at RN discretion. 7. Visitors- supportive guests, at RN discretion. 8. Activities: soft cart items, and netflix/hoda tablet approved per RN discretion. 9.? Bathroom privileges without limitations on med/surge. 10. Phone: limited to cordless phone at RN discretion. Due to VOLUNTARY status, if patient wishes to leave [facility], staff will contact [facility] Crisis Screener ([phone]) and the Hydrate Control Tender assigned, as soon as po ssible.
--- NOTE | 2024-11-11 16:58 | PDOC.CMPRO ---
Date of service: 11/11/24 Time of Service: 16:58 Care Management Progress Note Progress Note Text Progress Note Text: CM met with staff to discuss Liyah's plan of care. Per RN, Liyah has been sleeping most of the day, as well as at night. He has not been eating well. His RN reports that he will wake up when a meal tray is brought in, but then goes back to sleep without eating. Liyah was screened by [facility] via zoom today, who continues to state that he meets criteria for inpatient psychiatric admission. Safety plan in place. CM will continue to follow. Social Determinants of Health Screening Will the Patient Participate in the Screening?: Declined to provide
--- NOTE | 2024-11-11 19:30 | ED.PROG_ITS ---
Date of service: 11/11/24 Time of Service: 19:30 Medical Decision Making Care assumed from outgoing provider. Patient is currently pending voluntary inpatient placement for suicidal ideation. Has history of schizophrenia and hallucinations. Patient was accepted for placement at [facility]. By Dr. Santacruz Quality:[facility] Health Related Social Needs: Health related social needs inadequate housing (Z59.1) , housing i nstability, housed, with risk of homelessness (Z59.811), food insecurity (Z59.41) Discharge Plan Disposition Patient Disposition: Psychiatric Hospital/Unit Specific Psychiatric Facility: [facility] Condition: Stable Discharge Details Chief Complaint: PsychEval Clinical Impression: Depression with suicidal ideation, Homeless, Cocaine abuse Primary Care Provider: None,None ED Provider: Haylie Armijo Home Meds and New Rx's Prescriptions: No Action metformin 500 mg tablet 500 mg PO BID pantoprazole 40 mg tablet,delayed release (DR/EC) 40 mg PO DAILY trazodone 50 mg tablet 25 mg PO DAILY fluoxetine 10 mg capsule 10 mg PO DAILY fluoxetine 40 mg capsule 40 mg PO DAILY olanzapine 5 mg tablet 5 mg PO DAILY olanzapine 15 mg tablet 15 mg PO DAILY trazodone 100 mg tablet 100 mg PO DAILY
--- NOTE | 2024-11-11 19:52 | NUR.NOTE ---
Nursing Note: Belongings sent with patient and calex. Money given to pt from security.
--- NOTE | 2024-11-11 20:23 | PDOC.MHPN2 ---
Date of service: 11/11/24 Time of Service: 10:40 Mental Health Emergency Note Release [facility] release signed:: Yes Reason for Visit Hospital reassessment completed while client waits at [facility] for voluntary inpatient treatment. This chief underwriter is importing assessment for [facility]. In the last 2 weeks has the pt presented for ES prior to today?: Yes, presented at [facility] ED and [facility] Impression A mental health reassessment was completed with this client via Zoom. The client stated that he is feeling alright. When asked to describe his mood, the client stated, not sure. When asked he he felt better today than yesterday, the client said, I guess. The client denies current SI and HI. The client has not eaten today and denies having an appetite. The client didn't sleep good last night. He doesn't know how long he slept for but stated that he had trouble both falling and staying asleep. The client states that he has been resting since he's been at [facility]. He denies having any questions, needs or concerns. Plan/Disposition Recommended Disposition: Hospitalization (No beds available) facilities contacted. Plan: Client requests to remain at [facility] Zone B for voluntary inpatient mental health treatment placement. Person reported agreement to plan: Yes Reports/communication Outcome discussed with: ED/Personnel (Verbal report given to [facility] b staff)
== END 2024-11-11 19:51 ==
PROVIDERS: Emergency Provider Emergency Medicine
DX: F32.A Depression, unspecified (principal); R45.851 Suicidal ideations; Z59.10 Inadequate housing, unspecified; Z59.811 Housing instability, housed, with risk of homelessness; Z59.41 Food insecurity; F14.10 Cocaine abuse, uncomplicated; R44.0 Auditory hallucinations
CPT/HCPCS: 00123; 36416; 82962; 96127; 99285; H0046

== ENCOUNTER 2025-09-25 00:49 | Emergency (ER) | payer MEDICAID, SELFPAY ==
[2025-09-25] VITALS (15 sets, daily range): BP systolic 119–147; BP diastolic 72–93; PULSE 82–130; RESP 16–28; TEMP 36.6; O2SAT 92–98
[2025-09-25 01:35] LABS: Abs Immature Grans 0.04 10^3/uL (0.0-0.06); HCT 39.8 % (40.0-50.0); HGB 12.9 g/dL (13.5-17.5); Immature Grans % 0.4 %; MCH 26.6 pg (27.0-33.0); MCHC 32.4 % (32.0-36.0); MCV 82 fL (80-95); MPV 10.6 fL (8.0-11.0); Platelet Count 319 10^3/uL (130-400); RBC 4.85 10^6/uL (4.36-5.78); RDW 14.8 % (11.8-14.1); RDW-SD 44.1 fL; WBC 10.28 10^3/uL (4.4-10.8)
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
[2025-09-25 01:54] LABS: ALT 25 U/L (10-49); AST 21 U/L (<34); Albumin 4.6 g/dL (3.2-5.0); Alkaline Phosphatase 57 U/L (46-116); Anion Gap 13.2 mmol/L (3-11); BUN 9 mg/dL (9-23); Bilirubin, Total 0.50 mg/dL (0.2-1.2); CO2 21.8 mmol/L (20.0-31.0); Calcium 9.3 mg/dL (8.3-10.6); Chloride 109 mmol/L (98-107); Glucose 97 mg/dL (74-106); Potassium 3.2 mmol/L (3.5-5.1); Sodium 144 mmol/L (136-145); Total Protein 7.8 g/dL (5.7-8.2)
[2025-09-25] MEDS: Diph,Pertuss(Acell),Tet Vac/Pf 0.5 ML SYR IM (01:55)
[2025-09-25] MEDS: Hydrogen Peroxide 3% 480 ML BTL (01:57)
[2025-09-25] MEDS: Lidocaine 1% Pres-Free W/EPI 1/200,000 30 ML VIAL IJ (01:57)
[2025-09-25] MEDS: ceFAZolin 3,000 MG in Normal Saline 100 ML 200 MG IVPB (01:57)
[2025-09-25] MEDS: Normal Saline 1,000 ML 1000 ML IV (01:58)
[2025-09-25] MEDS: Normal Saline - Diluent 50 ML VIAL IJ (02:14)
[2025-09-25] MEDS: Omnipaque 350 MG/ML 100 ML BTL IJ (02:14)
[2025-09-25] MEDS: Normal Saline Flush 10 ML SYR IVP (02:15)
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
== END 2025-09-25 04:29 | disposition home or self-care (01) ==
PROVIDERS: Emergency Provider Student in an Organized Health Care Education/Training Program
DX: S01.01XA Laceration without foreign body of scalp, initial encounter (principal); S41.012A Laceration without foreign body of left shoulder, initial encounter; S31.119A Laceration without foreign body of abdominal wall, unspecified quadrant without penetration into peritoneal cavity, initial encounter; S61.512A Laceration without foreign body of left wrist, initial encounter; Y04.8XXA Assault by other bodily force, initial encounter; S00.83XA Contusion of other part of head, initial encounter
CPT/HCPCS: 12004; 12011; 36415; 74177; 80053; 86850; 86900; 86901; 90471; 90715; 96365; 99285; 70450; 70486; 71260; 72125; 80320; 85025; J0690; J2004; J3490